=== PATIENT | male | born 1980 | race Caucasian/White ===

== ENCOUNTER 2017-07-30 09:34 | Day surgery (SDC) | payer MEDICARE, MEDICAID ==
[~2017-07-30] VITALS: Ht 177.8 cm; Wt 142.9 kg
[~2017-07-30 09:34] MED LIST: ALLERGY NA50 MCG/ACT; AZELASTINE HCL0.15 %; CHLORHEXADINE0.12 % PO; DIPHENHYDRAMINE25 MG PO; LEXAPRO20 MG PO; METRONIDAZOLE0.751 EX; PAIN RELIEF650 MG PO
[2017-07-30 12:47] VITALS: BP 136/80
== END 2017-07-30 13:05 | disposition home or self-care (01) ==
LOC: ENDO 09:34
PROVIDERS: ATTEND Internal Medicine Gastroenterology
PROC: 0DBN8ZX Excision of Sigmoid Colon, Via Natural or Artificial Opening Endoscopic, Diagnostic (ICD-10-PCS; principal; 2017-07-30)
PROC: 0DBL8ZX Excision of Transverse Colon, Via Natural or Artificial Opening Endoscopic, Diagnostic (ICD-10-PCS; 2017-07-30)
DX: K92.1 Melena (principal); K62.6 Ulcer of anus and rectum; D12.5 Benign neoplasm of sigmoid colon; D12.3 Benign neoplasm of transverse colon; K64.4 Residual hemorrhoidal skin tags; K29.70 Gastritis, unspecified, without bleeding; K21.9 Gastro-esophageal reflux disease without esophagitis; K44.9 Diaphragmatic hernia without obstruction or gangrene; F32.9 Major depressive disorder, single episode, unspecified; Z86.010 Personal history of colon polyps